=== PATIENT | male | born 1950 | race Caucasian/White ===

== ENCOUNTER 2016-02-21 12:11 | Inpatient (IN) | payer MEDICAID ==
[~2016-02-21] VITALS: Ht 182.9 cm; Wt 98.4 kg
[2016-02-21 19:07] VITALS: BP_SYST 140; RESP 18; TEMP 97.6; Ht 182.9 cm; Wt 98.4 kg
[2016-02-21] MEDS ORDERED: ALU/MAG/SIM 30 ML UDC PO PRN (20:40)
[2016-02-21] MEDS ORDERED: ACETAMINOPHEN 325 MG TAB PO PRN (20:40)
[2016-02-21] MEDS ORDERED: DUONEB INH PRN (20:40)
[2016-02-21] MEDS ORDERED: ZIPRASIDONE 20 MG INJ IM PRN (20:40)
[2016-02-21] MEDS ORDERED: MAG HYDROX 30 ML UDC PO PRN (20:40)
[2016-02-21] MEDS ORDERED: LOPERAMIDE 2 MG CAPSULE PO PRN (20:40)
[2016-02-21] MEDS ORDERED: SALINE FLUSH 10 ML FLUSH PRN (20:40)
[2016-02-21] MEDS ORDERED: BISACODYL EC 5 MG TAB PO PRN (20:40)
[2016-02-21] MEDS: DIAZEPAM 2 MG TAB PO SCH (21:29)
[2016-02-21 22:00] VITALS: RESP 16
[2016-02-21 23:00] VITALS: BP_SYST 146; RESP 16; TEMP 97.9
[2016-02-21] MEDS: SODIUM CHLORIDE 0.9% FLUSH BAG 500 ML IV SCH ×2 (23:15)
[2016-02-22] MEDS: EMYCIN OP OINT 3.5 GM EYE EACH SCH ×3 (00:15→20:02)
[2016-02-22 03:38] VITALS: BP_SYST 141; RESP 16; TEMP 98.4
[2016-02-22] MEDS: PANTOPRAZOLE 40 MG TAB PO SCH (06:14)
[2016-02-22 07:25] VITALS: BP_SYST 147; RESP 18; TEMP 98.6
[2016-02-22] MEDS: HCTZ PO SCH (09:14)
[2016-02-22] MEDS: BISOPROLOL PO SCH (09:14)
[2016-02-22] MEDS: ASPIRIN 81 MG CHEW TAB PO SCH (09:14)
[2016-02-22] MEDS: DIAZEPAM 2 MG TAB PO SCH ×3 (09:14→20:02)
[2016-02-22] MEDS: SERTRALINE 20 MG/ML PO SCH (09:15)
[2016-02-22] MEDS: ENOXAPARIN 40 MG/0.4 ML SYR SUBQ SCH (09:16)
[2016-02-22] MEDS: SALINE FLUSH 10 ML FLUSH SCH ×2 (09:17→20:02)
[2016-02-22 10:29] VITALS: BP_SYST 116; RESP 16; TEMP 98.5
[2016-02-22 16:09] VITALS: BP_SYST 138; RESP 22; TEMP 98.3
[2016-02-22 19:16] VITALS: BP_SYST 127; RESP 18; TEMP 98.6
[2016-02-22 22:26] VITALS: BP_SYST 132; RESP 18; TEMP 98.9
[2016-02-22] MEDS ORDERED: MISSING DOSE XX ONE (23:40)
[2016-02-23] MEDS: SODIUM CHLORIDE 0.9% FLUSH BAG 500 ML IV SCH ×2 (00:38)
[2016-02-23 03:57] VITALS: RESP 18; TEMP 97.6
[2016-02-23] MEDS: PANTOPRAZOLE 40 MG TAB PO SCH (07:24)
[2016-02-23] MEDS: SERTRALINE 20 MG/ML PO SCH (08:03)
[2016-02-23] MEDS: HCTZ PO SCH (08:04)
[2016-02-23] MEDS: ASPIRIN 81 MG CHEW TAB PO SCH (08:04)
[2016-02-23] MEDS: EMYCIN OP OINT 3.5 GM EYE EACH SCH ×2 (08:04→21:47)
[2016-02-23] MEDS: BISOPROLOL PO SCH (08:04)
[2016-02-23] MEDS: DIAZEPAM 2 MG TAB PO SCH ×3 (08:04→21:48)
[2016-02-23] MEDS: ENOXAPARIN 40 MG/0.4 ML SYR SUBQ SCH (08:04)
[2016-02-23] MEDS: SALINE FLUSH 10 ML FLUSH SCH ×2 (08:05→21:47)
[2016-02-23 09:00] VITALS: BP_SYST 154; RESP 18; TEMP 98.6
[2016-02-23 11:47] VITALS: BP_SYST 110; RESP 18
[2016-02-23 15:32] VITALS: BP_SYST 136; RESP 18; TEMP 97.7
[2016-02-23 20:03] VITALS: BP_SYST 124; RESP 18; TEMP 97.9
[2016-02-23] MEDS ORDERED: DONEPEZIL 10 MG TABLET PO SCH (21:00)
[2016-02-23] MEDS: DONEPEZIL 10 MG TABLET PO SCH (21:48)
[2016-02-23] MEDS: CITALOPRAM 20 MG TAB PO SCH (21:48)
[2016-02-23 23:30] VITALS: BP_SYST 88; RESP 18; TEMP 98.5
[2016-02-24 03:46] VITALS: BP_SYST 108; RESP 18; TEMP 97.4
[2016-02-24] MEDS: SODIUM CHLORIDE 0.9% FLUSH BAG 500 ML IV SCH ×2 (05:31→05:32)
[2016-02-24] MEDS ORDERED: DIAZEPAM 2 MG TAB PO ONE (05:45)
[2016-02-24] MEDS: PANTOPRAZOLE 40 MG TAB PO SCH (05:55)
[2016-02-24 07:35] VITALS: BP_SYST 102; RESP 18; TEMP 97.4
[2016-02-24] MEDS ORDERED: MISSING DOSE XX ONE ×2 (09:00→20:45)
[2016-02-24] MEDS: ASPIRIN 81 MG CHEW TAB PO SCH (09:18)
[2016-02-24] MEDS: BISOPROLOL PO SCH (09:18)
[2016-02-24] MEDS: HCTZ PO SCH (09:18)
[2016-02-24] MEDS: ENOXAPARIN 40 MG/0.4 ML SYR SUBQ SCH (09:19)
[2016-02-24] MEDS: SALINE FLUSH 10 ML FLUSH SCH ×2 (09:20→20:42)
[2016-02-24] MEDS: SERTRALINE 20 MG/ML PO SCH (09:20)
[2016-02-24] MEDS: EMYCIN OP OINT 3.5 GM EYE EACH SCH ×2 (09:20→20:42)
[2016-02-24] MEDS: DIAZEPAM 2 MG TAB PO SCH ×3 (09:22→20:42)
[2016-02-24 11:23] VITALS: BP_SYST 102; RESP 18; TEMP 98.3
[2016-02-24 15:16] VITALS: BP_SYST 104; RESP 18; TEMP 97.4
[2016-02-24 19:42] VITALS: BP_SYST 130; RESP 16; TEMP 97.7
[2016-02-24] MEDS: CITALOPRAM 20 MG TAB PO SCH (20:42)
[2016-02-24] MEDS: DONEPEZIL 10 MG TABLET PO SCH (21:28)
[2016-02-24 22:54] VITALS: BP_SYST 140; RESP 16; TEMP 98.6
[2016-02-25 03:58] VITALS: BP_SYST 127; RESP 18; TEMP 97.8
[2016-02-25] MEDS: SODIUM CHLORIDE 0.9% FLUSH BAG 500 ML IV SCH ×2 (06:00)
[2016-02-25] MEDS: PANTOPRAZOLE 40 MG TAB PO SCH (06:03)
[2016-02-25 07:48] VITALS: BP_SYST 103; RESP 20; TEMP 98.5
[2016-02-25] MEDS: EMYCIN OP OINT 3.5 GM EYE EACH SCH ×2 (08:44→20:37)
[2016-02-25] MEDS: SALINE FLUSH 10 ML FLUSH SCH ×2 (08:45→20:36)
[2016-02-25] MEDS: ASPIRIN 81 MG CHEW TAB PO SCH (08:45)
[2016-02-25] MEDS: DIAZEPAM 2 MG TAB PO SCH ×3 (08:45→20:36)
[2016-02-25] MEDS: BISOPROLOL PO SCH (08:45)
[2016-02-25] MEDS: HCTZ PO SCH (08:45)
[2016-02-25] MEDS ORDERED: MISSING DOSE XX ONE (08:45)
[2016-02-25] MEDS: ENOXAPARIN 40 MG/0.4 ML SYR SUBQ SCH (08:46)
[2016-02-25] MEDS: SERTRALINE 20 MG/ML PO SCH (08:54)
[2016-02-25 11:22] VITALS: BP_SYST 125; RESP 18; TEMP 98.2
[2016-02-25] MEDS: DIAZEPAM 2 MG TAB PO PRN (13:37)
[2016-02-25 16:19] VITALS: BP_SYST 111; RESP 18; TEMP 97.6
[2016-02-25 19:26] VITALS: BP_SYST 113; RESP 16; TEMP 98
[2016-02-25] MEDS: DONEPEZIL 10 MG TABLET PO SCH (20:36)
[2016-02-25] MEDS: CITALOPRAM 20 MG TAB PO SCH (20:37)
[2016-02-25 23:43] VITALS: BP_SYST 119; RESP 18; TEMP 97.4
[2016-02-26 04:05] VITALS: BP_SYST 117; RESP 18; TEMP 97.8
[2016-02-26] MEDS: SODIUM CHLORIDE 0.9% FLUSH BAG 500 ML IV SCH ×2 (05:07)
[2016-02-26] MEDS: PANTOPRAZOLE 40 MG TAB PO SCH (06:08)
[2016-02-26] MEDS ORDERED: AZITHROMYCIN 500 MG in SODIUM CHLORIDE 0.9% 250 ML IV ONE (07:50)
[2016-02-26] MEDS ORDERED: MISSING DOSE XX ONE (08:05)
[2016-02-26 08:18] VITALS: BP_SYST 123; RESP 16; TEMP 98.7
[2016-02-26] MEDS: SALINE FLUSH 10 ML FLUSH SCH ×2 (08:22→20:32)
[2016-02-26] MEDS: LEVOFLOXACIN 750 MG TAB PO SCH (08:23)
[2016-02-26] MEDS: ASPIRIN 81 MG CHEW TAB PO SCH (08:23)
[2016-02-26] MEDS: HCTZ PO SCH (08:23)
[2016-02-26] MEDS: EMYCIN OP OINT 3.5 GM EYE EACH SCH ×2 (08:23→20:32)
[2016-02-26] MEDS: BISOPROLOL PO SCH (08:23)
[2016-02-26] MEDS: ENOXAPARIN 40 MG/0.4 ML SYR SUBQ SCH (08:24)
[2016-02-26] MEDS: SERTRALINE 20 MG/ML PO SCH (08:24)
[2016-02-26] MEDS: DIAZEPAM 2 MG TAB PO SCH ×3 (09:00→20:32)
[2016-02-26] MEDS ORDERED: CEFTRIAXONE 1 GM in SODIUM CHLORIDE 0.9% 50 ML IV SCH (09:00)
[2016-02-26] MEDS: DIAZEPAM 2 MG TAB PO PRN (11:40)
[2016-02-26 12:39] VITALS: BP_SYST 105; RESP 16; TEMP 98
[2016-02-26 19:00] VITALS: BP_SYST 123; RESP 16; TEMP 98.1
[2016-02-26] MEDS: DONEPEZIL 10 MG TABLET PO SCH (20:32)
[2016-02-26] MEDS: CITALOPRAM 20 MG TAB PO SCH (20:32)
[2016-02-27] VITALS (7 sets, daily range): BP systolic 97–133; RESP 16–22; TEMP 97.4–98.9
[2016-02-27] MEDS: DIAZEPAM 2 MG TAB PO PRN (00:17)
[2016-02-27] MEDS: SODIUM CHLORIDE 0.9% FLUSH BAG 500 ML IV SCH ×2 (05:02)
[2016-02-27] MEDS: PANTOPRAZOLE 40 MG TAB PO SCH (06:11)
[2016-02-27] MEDS: SALINE FLUSH 10 ML FLUSH SCH ×2 (09:50→19:51)
[2016-02-27] MEDS: EMYCIN OP OINT 3.5 GM EYE EACH SCH ×2 (09:51→20:58)
[2016-02-27] MEDS: HCTZ PO SCH (09:51)
[2016-02-27] MEDS: BISOPROLOL PO SCH (09:51)
[2016-02-27] MEDS: ASPIRIN 81 MG CHEW TAB PO SCH (09:51)
[2016-02-27] MEDS: SERTRALINE 20 MG/ML PO SCH (09:51)
[2016-02-27] MEDS: LEVOFLOXACIN 750 MG TAB PO SCH (09:51)
[2016-02-27] MEDS: ENOXAPARIN 40 MG/0.4 ML SYR SUBQ SCH (09:52)
[2016-02-27] MEDS: DIAZEPAM 2 MG TAB PO SCH ×3 (10:41→20:51)
[2016-02-27] MEDS: DONEPEZIL 10 MG TABLET PO SCH (20:51)
[2016-02-27] MEDS: CITALOPRAM 20 MG TAB PO SCH (20:51)
[2016-02-28] MEDS: SODIUM CHLORIDE 0.9% FLUSH BAG 500 ML IV SCH ×2 (05:45)
[2016-02-28] MEDS: PANTOPRAZOLE 40 MG TAB PO SCH (06:06)
[2016-02-28 08:18] VITALS: BP_SYST 137; RESP 18; TEMP 97.3
[2016-02-28] MEDS: SERTRALINE 20 MG/ML PO SCH (08:42)
[2016-02-28] MEDS: DIAZEPAM 2 MG TAB PO SCH ×3 (08:42→20:04)
[2016-02-28] MEDS: BISOPROLOL PO SCH ×2 (08:42→10:08)
[2016-02-28] MEDS: HCTZ PO SCH ×2 (08:42→10:08)
[2016-02-28] MEDS: ENOXAPARIN 40 MG/0.4 ML SYR SUBQ SCH (08:43)
[2016-02-28] MEDS: LEVOFLOXACIN 750 MG TAB PO SCH (08:43)
[2016-02-28] MEDS: ASPIRIN 81 MG CHEW TAB PO SCH (08:43)
[2016-02-28] MEDS: EMYCIN OP OINT 3.5 GM EYE EACH SCH ×2 (08:43→20:00)
[2016-02-28] MEDS: SALINE FLUSH 10 ML FLUSH SCH ×2 (08:44→19:59)
[2016-02-28 11:40] VITALS: BP_SYST 112; RESP 18; TEMP 98.4
[2016-02-28 15:53] VITALS: BP_SYST 126; RESP 18; TEMP 98
[2016-02-28 19:00] VITALS: BP_SYST 106; RESP 18; TEMP 98.6
[2016-02-28] MEDS: DONEPEZIL 10 MG TABLET PO SCH (20:01)
[2016-02-28] MEDS: CITALOPRAM 20 MG TAB PO SCH (20:01)
[2016-02-28] MEDS: DIAZEPAM 2 MG TAB PO PRN (22:38)
[2016-02-29] VITALS (7 sets, daily range): BP systolic 102–131; RESP 16–20; TEMP 97.2–98.6
[2016-02-29] MEDS: DIAZEPAM 2 MG TAB PO PRN (04:14)
[2016-02-29] MEDS: SODIUM CHLORIDE 0.9% FLUSH BAG 500 ML IV SCH ×2 (06:00)
[2016-02-29] MEDS: PANTOPRAZOLE 40 MG TAB PO SCH (06:39)
[2016-02-29] MEDS: DIAZEPAM 2 MG TAB PO SCH ×3 (09:15→20:13)
[2016-02-29] MEDS: ASPIRIN 81 MG CHEW TAB PO SCH (09:15)
[2016-02-29] MEDS: LEVOFLOXACIN 750 MG TAB PO SCH (09:15)
[2016-02-29] MEDS: BISOPROLOL PO SCH (09:15)
[2016-02-29] MEDS: HCTZ PO SCH (09:15)
[2016-02-29] MEDS: SALINE FLUSH 10 ML FLUSH SCH ×2 (09:16→20:13)
[2016-02-29] MEDS: EMYCIN OP OINT 3.5 GM EYE EACH SCH ×2 (09:16→20:14)
[2016-02-29] MEDS: ENOXAPARIN 40 MG/0.4 ML SYR SUBQ SCH (09:17)
[2016-02-29] MEDS: SERTRALINE 20 MG/ML PO SCH (09:18)
[2016-02-29] MEDS: DONEPEZIL 10 MG TABLET PO SCH (20:13)
[2016-02-29] MEDS: CITALOPRAM 20 MG TAB PO SCH (20:13)
[2016-03-01] VITALS (7 sets, daily range): BP systolic 105–139; RESP 16–18; TEMP 97.4–98.2
[2016-03-01] MEDS: DIAZEPAM 2 MG TAB PO PRN (03:02)
[2016-03-01] MEDS: SODIUM CHLORIDE 0.9% FLUSH BAG 500 ML IV SCH ×2 (06:00→06:36)
[2016-03-01] MEDS: PANTOPRAZOLE 40 MG TAB PO SCH (06:36)
[2016-03-01] MEDS: BISOPROLOL PO SCH (08:49)
[2016-03-01] MEDS: HCTZ PO SCH (08:49)
[2016-03-01] MEDS: LEVOFLOXACIN 750 MG TAB PO SCH (08:49)
[2016-03-01] MEDS: ASPIRIN 81 MG CHEW TAB PO SCH (08:49)
[2016-03-01] MEDS: SALINE FLUSH 10 ML FLUSH SCH ×2 (08:49→20:54)
[2016-03-01] MEDS: EMYCIN OP OINT 3.5 GM EYE EACH SCH ×2 (08:49→20:54)
[2016-03-01] MEDS: DIAZEPAM 2 MG TAB PO SCH ×3 (08:50→20:54)
[2016-03-01] MEDS: SERTRALINE 20 MG/ML PO SCH (08:51)
[2016-03-01] MEDS: ENOXAPARIN 40 MG/0.4 ML SYR SUBQ SCH (08:52)
[2016-03-01] MEDS: DONEPEZIL 10 MG TABLET PO SCH (20:54)
[2016-03-01] MEDS: CITALOPRAM 20 MG TAB PO SCH (20:54)
[2016-03-02] MEDS: DIAZEPAM 2 MG TAB PO PRN (00:57)
[2016-03-02] MEDS: SODIUM CHLORIDE 0.9% FLUSH BAG 500 ML IV SCH ×2 (06:00)
[2016-03-02] MEDS: PANTOPRAZOLE 40 MG TAB PO SCH (06:33)
[2016-03-02] MEDS: SALINE FLUSH 10 ML FLUSH SCH ×2 (08:00→19:44)
[2016-03-02 08:29] VITALS: BP_SYST 143; RESP 18; TEMP 98
[2016-03-02] MEDS: LEVOFLOXACIN 750 MG TAB PO SCH (09:49)
[2016-03-02] MEDS: ENOXAPARIN 40 MG/0.4 ML SYR SUBQ SCH (09:50)
[2016-03-02] MEDS: ASPIRIN 81 MG CHEW TAB PO SCH (09:51)
[2016-03-02] MEDS: EMYCIN OP OINT 3.5 GM EYE EACH SCH ×2 (09:51→19:48)
[2016-03-02] MEDS: SERTRALINE 20 MG/ML PO SCH (09:51)
[2016-03-02] MEDS: DIAZEPAM 2 MG TAB PO SCH ×3 (09:52→19:43)
[2016-03-02] MEDS: HCTZ PO SCH (09:52)
[2016-03-02] MEDS: BISOPROLOL PO SCH (09:52)
[2016-03-02 11:39] VITALS: BP_SYST 103; RESP 18
[2016-03-02 13:25] VITALS: BP_SYST 104
[2016-03-02 16:11] VITALS: BP_SYST 98; RESP 18; TEMP 97.9
[2016-03-02] MEDS: CITALOPRAM 20 MG TAB PO SCH (19:43)
[2016-03-02] MEDS: DONEPEZIL 10 MG TABLET PO SCH (19:43)
[2016-03-02 19:54] VITALS: BP_SYST 147; RESP 18; TEMP 98.5
[2016-03-03] VITALS (7 sets, daily range): BP systolic 102–125; RESP 16–18; TEMP 97.4–98.3
[2016-03-03] MEDS: SODIUM CHLORIDE 0.9% FLUSH BAG 500 ML IV SCH ×2 (00:58→01:11)
[2016-03-03] MEDS: PANTOPRAZOLE 40 MG TAB PO SCH (07:00)
[2016-03-03] MEDS: SALINE FLUSH 10 ML FLUSH SCH ×2 (08:00→20:00)
[2016-03-03] MEDS: DIAZEPAM 2 MG TAB PO SCH (09:00)
[2016-03-03] MEDS: SERTRALINE 20 MG/ML PO SCH (09:49)
[2016-03-03] MEDS: LEVOFLOXACIN 750 MG TAB PO SCH (09:50)
[2016-03-03] MEDS: BISOPROLOL PO SCH (09:50)
[2016-03-03] MEDS: ASPIRIN 81 MG CHEW TAB PO SCH (09:50)
[2016-03-03] MEDS: HCTZ PO SCH (09:50)
[2016-03-03] MEDS: ENOXAPARIN 40 MG/0.4 ML SYR SUBQ SCH (09:50)
[2016-03-03] MEDS ORDERED: MISSING DOSE XX ONE (10:10)
[2016-03-03] MEDS: EMYCIN OP OINT 3.5 GM EYE EACH SCH ×2 (10:14→20:52)
[2016-03-03] MEDS: CITALOPRAM 20 MG TAB PO SCH (20:52)
[2016-03-03] MEDS: DONEPEZIL 10 MG TABLET PO SCH (20:52)
[2016-03-04 03:32] VITALS: BP_SYST 106; RESP 16; TEMP 98
[2016-03-04] MEDS: SODIUM CHLORIDE 0.9% FLUSH BAG 500 ML IV SCH ×2 (04:19→04:20)
[2016-03-04] MEDS: PANTOPRAZOLE 40 MG TAB PO SCH (06:47)
[2016-03-04 07:46] VITALS: BP_SYST 106; RESP 16; TEMP 98.1
[2016-03-04] MEDS: SALINE FLUSH 10 ML FLUSH SCH ×2 (08:00→20:00)
[2016-03-04] MEDS: BISOPROLOL PO SCH (08:34)
[2016-03-04] MEDS: SERTRALINE 20 MG/ML PO SCH (08:34)
[2016-03-04] MEDS: ASPIRIN 81 MG CHEW TAB PO SCH (08:34)
[2016-03-04] MEDS: EMYCIN OP OINT 3.5 GM EYE EACH SCH ×2 (08:34→20:02)
[2016-03-04] MEDS: HCTZ PO SCH (08:34)
[2016-03-04] MEDS: ENOXAPARIN 40 MG/0.4 ML SYR SUBQ SCH (08:35)
[2016-03-04 15:33] VITALS: BP_SYST 108; RESP 16; TEMP 98.1
[2016-03-04] MEDS: CITALOPRAM 20 MG TAB PO SCH (20:02)
[2016-03-04] MEDS: DONEPEZIL 10 MG TABLET PO SCH (20:03)
[2016-03-04 20:12] VITALS: BP_SYST 115; RESP 16
[2016-03-04] MEDS: DIAZEPAM 2 MG TAB PO PRN (20:42)
[2016-03-04 23:54] VITALS: BP_SYST 133; RESP 18; TEMP 97.3
[2016-03-05] MEDS: SODIUM CHLORIDE 0.9% FLUSH BAG 500 ML IV SCH ×2 (01:59)
[2016-03-05 03:51] VITALS: BP_SYST 117; RESP 18
[2016-03-05] MEDS: DIAZEPAM 2 MG TAB PO PRN ×3 (04:14→22:58)
[2016-03-05] MEDS: PANTOPRAZOLE 40 MG TAB PO SCH (05:54)
[2016-03-05 07:42] VITALS: BP_SYST 112; RESP 18; TEMP 97.8
[2016-03-05] MEDS: SALINE FLUSH 10 ML FLUSH SCH (09:38)
[2016-03-05] MEDS: BISOPROLOL PO SCH (09:39)
[2016-03-05] MEDS: ASPIRIN 81 MG CHEW TAB PO SCH (09:39)
[2016-03-05] MEDS: SERTRALINE 20 MG/ML PO SCH (09:39)
[2016-03-05] MEDS: HCTZ PO SCH (09:39)
[2016-03-05] MEDS: ENOXAPARIN 40 MG/0.4 ML SYR SUBQ SCH (09:40)
[2016-03-05] MEDS: EMYCIN OP OINT 3.5 GM EYE EACH SCH ×2 (09:40→20:07)
[2016-03-05 10:52] VITALS: BP_SYST 111; RESP 18; TEMP 97.3
[2016-03-05] MEDS ORDERED: MAG HYDROX 30 ML UDC PO PRN (15:15)
[2016-03-05] MEDS ORDERED: BISACODYL EC 5 MG TAB PO PRN (15:15)
[2016-03-05] MEDS ORDERED: ALU/MAG/SIM 30 ML UDC PO PRN (15:15)
[2016-03-05] MEDS ORDERED: ACETAMINOPHEN 325 MG TAB PO PRN (15:15)
[2016-03-05] MEDS ORDERED: DUONEB INH PRN (15:15)
[2016-03-05 15:34] VITALS: BP_SYST 101; RESP 18; TEMP 97.6
[2016-03-05 20:00] VITALS: BP_SYST 94; RESP 16; TEMP 97.4
[2016-03-05] MEDS: DONEPEZIL 10 MG TABLET PO SCH (20:07)
[2016-03-05] MEDS: CITALOPRAM 20 MG TAB PO SCH (20:07)
[2016-03-05 23:11] VITALS: BP_SYST 118; RESP 16; TEMP 97.6
[2016-03-06 04:00] VITALS: BP_SYST 136; RESP 18; TEMP 97.6
[2016-03-06] MEDS: PANTOPRAZOLE 40 MG TAB PO SCH (06:49)
[2016-03-06 08:17] VITALS: BP_SYST 145; RESP 18; TEMP 98.8
[2016-03-06] MEDS ORDERED: MISSING DOSE XX ONE ×2 (10:25→20:30)
[2016-03-06] MEDS: BISOPROLOL PO SCH (11:09)
[2016-03-06] MEDS: HCTZ PO SCH (11:09)
[2016-03-06] MEDS: SERTRALINE 100 MG TAB PO SCH (11:09)
[2016-03-06] MEDS: ASPIRIN 81 MG CHEW TAB PO SCH (11:10)
[2016-03-06] MEDS: ENOXAPARIN 40 MG/0.4 ML SYR SUBQ SCH (11:10)
[2016-03-06] MEDS: DIAZEPAM 2 MG TAB PO PRN ×2 (11:10→20:43)
[2016-03-06] MEDS: EMYCIN OP OINT 3.5 GM EYE EACH SCH ×2 (11:10→21:28)
[2016-03-06 11:43] VITALS: BP_SYST 120; RESP 18; TEMP 98.2
[2016-03-06 16:17] VITALS: BP_SYST 118; RESP 16; TEMP 97.6
[2016-03-06 19:14] VITALS: BP_SYST 102; RESP 16; TEMP 98.8
[2016-03-06] MEDS: CITALOPRAM 20 MG TAB PO SCH (21:25)
[2016-03-06] MEDS: DONEPEZIL 10 MG TABLET PO SCH (21:25)
[2016-03-06 23:50] VITALS: BP_SYST 100; RESP 16; TEMP 97.2
[2016-03-07 03:31] VITALS: BP_SYST 98; RESP 16; TEMP 98.4
[2016-03-07] MEDS: PANTOPRAZOLE 40 MG TAB PO SCH (06:24)
[2016-03-07] MEDS ORDERED: MISSING DOSE XX ONE (08:05)
[2016-03-07] MEDS: ASPIRIN 81 MG CHEW TAB PO SCH (09:22)
[2016-03-07] MEDS: SERTRALINE 100 MG TAB PO SCH (09:23)
[2016-03-07] MEDS: DIAZEPAM 2 MG TAB PO PRN (09:23)
[2016-03-07] MEDS: HCTZ PO SCH (09:23)
[2016-03-07] MEDS: BISOPROLOL PO SCH (09:23)
[2016-03-07] MEDS: ENOXAPARIN 40 MG/0.4 ML SYR SUBQ SCH (09:25)
[2016-03-07] MEDS: EMYCIN OP OINT 3.5 GM EYE EACH SCH ×2 (09:26→19:52)
[2016-03-07 11:07] VITALS: BP_SYST 106; TEMP 99
[2016-03-07 15:14] VITALS: BP_SYST 122; TEMP 97.7
[2016-03-07] MEDS: DONEPEZIL 10 MG TABLET PO SCH (19:52)
[2016-03-07] MEDS: CITALOPRAM 20 MG TAB PO SCH (19:53)
[2016-03-07 20:06] VITALS: BP_SYST 111; RESP 18; TEMP 98.4
[2016-03-07 23:50] VITALS: BP_SYST 103; RESP 16; TEMP 98.2
[2016-03-08 05:00] VITALS: BP_SYST 90; RESP 16; TEMP 98.3
[2016-03-08] MEDS: DIAZEPAM 2 MG TAB PO PRN ×2 (05:13→20:00)
[2016-03-08 07:31] VITALS: BP_SYST 106; RESP 16; TEMP 97.4
[2016-03-08] MEDS: ASPIRIN 81 MG CHEW TAB PO SCH (08:05)
[2016-03-08] MEDS: PANTOPRAZOLE 40 MG TAB PO SCH (08:05)
[2016-03-08] MEDS: EMYCIN OP OINT 3.5 GM EYE EACH SCH ×2 (08:05→19:55)
[2016-03-08] MEDS: ENOXAPARIN 40 MG/0.4 ML SYR SUBQ SCH (08:06)
[2016-03-08] MEDS ORDERED: MISSING DOSE XX ONE (08:15)
[2016-03-08] MEDS: SERTRALINE 100 MG TAB PO SCH (10:49)
[2016-03-08] MEDS: HCTZ PO SCH (11:14)
[2016-03-08] MEDS: BISOPROLOL PO SCH (11:14)
[2016-03-08 11:30] VITALS: BP_SYST 110; RESP 16; TEMP 97.5
[2016-03-08 15:58] VITALS: BP_SYST 123; RESP 16; TEMP 97.7
[2016-03-08] MEDS: DONEPEZIL 10 MG TABLET PO SCH (19:56)
[2016-03-08] MEDS: CITALOPRAM 20 MG TAB PO SCH (19:57)
[2016-03-08 20:45] VITALS: BP_SYST 112; RESP 18; TEMP 99
[2016-03-09 00:17] VITALS: BP_SYST 123; RESP 18; TEMP 97.3
[2016-03-09 04:53] VITALS: BP_SYST 106; RESP 20
[2016-03-09] MEDS: PANTOPRAZOLE 40 MG TAB PO SCH (07:48)
[2016-03-09 08:36] VITALS: BP_SYST 123; RESP 16; TEMP 98
[2016-03-09] MEDS: EMYCIN OP OINT 3.5 GM EYE EACH SCH ×2 (08:46→19:59)
[2016-03-09] MEDS: ASPIRIN 81 MG CHEW TAB PO SCH (08:46)
[2016-03-09] MEDS: HCTZ PO SCH (08:47)
[2016-03-09] MEDS: BISOPROLOL PO SCH (08:47)
[2016-03-09] MEDS: SERTRALINE 100 MG TAB PO SCH (08:48)
[2016-03-09] MEDS: ENOXAPARIN 40 MG/0.4 ML SYR SUBQ SCH (08:49)
[2016-03-09 16:03] VITALS: BP_SYST 119; RESP 18; TEMP 98.2
[2016-03-09] MEDS: CITALOPRAM 20 MG TAB PO SCH (19:58)
[2016-03-09] MEDS: DONEPEZIL 10 MG TABLET PO SCH (19:58)
[2016-03-09 20:15] VITALS: BP_SYST 102; RESP 18; TEMP 98.3
[2016-03-10 00:13] VITALS: BP_SYST 107; RESP 18; TEMP 97.5
[2016-03-10] MEDS: DIAZEPAM 2 MG TAB PO PRN (00:21)
[2016-03-10] MEDS: PANTOPRAZOLE 40 MG TAB PO SCH (06:53)
[2016-03-10 07:19] VITALS: BP_SYST 118; RESP 18; TEMP 97.9
[2016-03-10] MEDS: HCTZ PO SCH (09:06)
[2016-03-10] MEDS: BISOPROLOL PO SCH (09:06)
[2016-03-10] MEDS: ASPIRIN 81 MG CHEW TAB PO SCH (09:06)
[2016-03-10] MEDS: ENOXAPARIN 40 MG/0.4 ML SYR SUBQ SCH (09:08)
[2016-03-10] MEDS: SERTRALINE 100 MG TAB PO SCH (09:09)
[2016-03-10] MEDS: EMYCIN OP OINT 3.5 GM EYE EACH SCH (09:12)
[2016-03-10 11:52] VITALS: BP_SYST 105; RESP 16; TEMP 97.5
[2016-03-10 11:58] VITALS: BP_SYST 105; RESP 16; TEMP 97.5
== END 2016-03-10 14:53 | DRG 56 ==
LOC: ENRESERVTM → ENRESERVDT → CANRESERV → ER 12:11 → EMR 17:29 → 4THE 18:55 → OBSVTOIN 02-24 19:16 → ENPENDDIS 02-24 19:16 → 4THE 03-05 11:56 → 4THW 03-05 21:25
PROVIDERS: ADMIT Internal Medicine; ATTEND Internal Medicine
DX: G31.01 Pick's disease (principal); G92 Toxic encephalopathy; F02.81 Dementia in other diseases classified elsewhere, unspecified severity, with behavioral disturbance; I10 Essential (primary) hypertension; S42.001A Fracture of unspecified part of right clavicle, initial encounter for closed fracture; D72.829 Elevated white blood cell count, unspecified; F32.9 Major depressive disorder, single episode, unspecified; W01.0XXA Fall on same level from slipping, tripping and stumbling without subsequent striking against object, initial encounter; Z91.81 History of falling; Y92.009 Unspecified place in unspecified non-institutional (private) residence as the place of occurrence of the external cause; H10.9 Unspecified conjunctivitis; F41.9 Anxiety disorder, unspecified; T42.4X5A Adverse effect of benzodiazepines, initial encounter; J44.9 Chronic obstructive pulmonary disease, unspecified; F17.211 Nicotine dependence, cigarettes, in remission; Z79.82 Long term (current) use of aspirin; Z85.6 Personal history of leukemia
CPT/HCPCS: 36415; 71010; 80048; 80053; 81003; 82947; 84439; 84443; 85025; 87040; 94799; 99219; 99224; 99231; 99232; 99233; 99239